=== PATIENT | female | born 1990 | race Caucasian/White ===

== ENCOUNTER 2022-12-08 12:50 | Outpatient (CLI) | payer BC, SELFPAY ==
[2022-12-08 23:46] LABS: Chlamydia DNA Amplified* NOT DETECTED (No Detected); GC DNA Amplified* NOT DETECTED (No Detected)
== END 2022-12-08 12:51 | disposition home or self-care (01) ==
LOC: NFLDUCREF 12:51
PROVIDERS: Visit Provider Nurse Practitioner Family
DX: R30.0 Dysuria (principal)
CPT/HCPCS: 87086; 87186; 87491; 87591

== ENCOUNTER 2023-11-17 10:17 | Outpatient (CLI) | payer BC, SELFPAY ==
[2023-11-17 12:56] LABS: Chlamydia DNA Amplified* NOT DETECTED (No Detected); GC DNA Amplified* NOT DETECTED (No Detected)
== END 2023-11-17 10:18 | disposition home or self-care (01) ==
PROVIDERS: Visit Provider Registered Nurse
DX: Z11.3 Encounter for screening for infections with a predominantly sexual mode of transmission (principal)
CPT/HCPCS: 86592; 86703; 86803; 87340; 87491; 87591

== ENCOUNTER 2024-05-06 13:58 | Outpatient (CLI) | payer BC, SELFPAY ==
[2024-05-06 16:16] LABS: Chlamydia DNA Amplified* NOT DETECTED (No Detected); GC DNA Amplified* NOT DETECTED (No Detected)
== END 2024-05-06 13:59 | disposition home or self-care (01) ==
LOC: NFLDREF 13:59
PROVIDERS: PCP Registered Nurse; Visit Provider Registered Nurse
DX: Z11.3 Encounter for screening for infections with a predominantly sexual mode of transmission (principal)
CPT/HCPCS: 87491; 87591

== ENCOUNTER 2024-09-16 14:16 | Outpatient (CLI) | payer BC, SELFPAY ==
[2024-09-16 20:16] LABS: Chlamydia DNA Amplified* NOT DETECTED (No Detected); GC DNA Amplified* NOT DETECTED (No Detected)
== END 2024-09-16 14:17 | disposition home or self-care (01) ==
LOC: NFLDREF 14:17
PROVIDERS: PCP Registered Nurse; Visit Provider Physician Assistant
DX: Z11.3 Encounter for screening for infections with a predominantly sexual mode of transmission (principal)
CPT/HCPCS: 87491; 87591